=== PATIENT | female | born 1955 | race Caucasian/White ===

== ENCOUNTER → 2020-11-22 | Outpatient (CLI) | payer OTHER | LOC: DTC 13:47 | DX: E11.9 Type 2 diabetes mellitus without complications (principal) | CPT/HCPCS: G0109 ==

== ENCOUNTER → 2020-12-23 | Outpatient (CLI) | payer OTHER | LOC: KOH-I 12:50 | DX: R53.83 Other fatigue (principal); I73.9 Peripheral vascular disease, unspecified; R06.02 Shortness of breath | CPT/HCPCS: 93925 ==